=== PATIENT | female | born 1980 | race Caucasian/White ===

== ENCOUNTER 2021-10-02 04:11 | Emergency (ER) | payer OTHER ==
[~2021-10-02] VITALS: Ht 165.1 cm; Wt 68.0 kg
[2021-10-02] MEDS ORDERED: PERCOCET 5-3251 EACH PO (06:35)
[2021-10-02] MEDS ORDERED: FLOMAX0.4 MG PO (06:35)
[2021-10-02] MEDS ORDERED: CEFDINIR300 MG PO (06:35)
[2021-10-02] MEDS ORDERED: ONDANSETRON ODT8 MG PO (06:35)
[2021-10-02] MEDS ORDERED: PROMETHAZINE HC25 MG PR (06:35)
== END 2021-10-02 07:17 | disposition home or self-care (01) ==
LOC: ED 04:11
DX: N13.2 Hydronephrosis with renal and ureteral calculous obstruction (principal)
CPT/HCPCS: 36415; 74177; 80053; 81001; 83690; 84703; 85025; 96361; 96375; 96376; 99284-25; J0696; J1170; J1790; J1885; J2270; J2405; J2765; J7030; Q9967